=== PATIENT | female | born 1960 | race Two or more races ===

== ENCOUNTER 2016-11-29 14:59 | Emergency (ER) | payer SELFPAY ==
[~2016-11-29] VITALS: Ht 157.5 cm; Wt 79.9 kg
[2016-11-29 21:23] VITALS: BP 135/74
== END 2016-11-29 21:32 | disposition home or self-care (01) ==
LOC: ER 20:03
DX: M25.562 Pain in left knee (principal); W01.0XXA Fall on same level from slipping, tripping and stumbling without subsequent striking against object, initial encounter; Y93.89 Activity, other specified; Y92.89 Other specified places as the place of occurrence of the external cause; Y99.8 Other external cause status; Z98.890 Other specified postprocedural states
CPT/HCPCS: 73562; 81025; 99284

== ENCOUNTER 2023-03-06 18:10 | Emergency (ER) | payer OTHER ==
[~2023-03-06] VITALS: Ht 157.5 cm; Wt 73.0 kg
[2023-03-06 18:15] VITALS: BP 162/49; PULSE 76; RESP 18; TEMP 98.2; O2SAT 100
[2023-03-06] MEDS ORDERED: ACETAMINOPHEN 325MG TABLET PO ONE (19:15)
[2023-03-06] MEDS ORDERED: ACET-2708 MT (20:18)
== END 2023-03-06 22:00 | disposition home or self-care (01) ==
LOC: ER 18:17
DX: M79.89 Other specified soft tissue disorders (principal); I10 Essential (primary) hypertension; Z98.890 Other specified postprocedural states
CPT/HCPCS: 99283; 73562; L1830